=== PATIENT | male | born 1970 | race Caucasian/White ===

== ENCOUNTER 2018-02-15 09:14 | Emergency (ER) | payer BC ==
[2018-02-15 09:37] VITALS: BMI 21.1
--- NOTE | 2018-02-15 09:42 | PDOC ---
History of Present Illness - General Chief Complaint: Chest Pain Stated Complaint: CHEST PAIN Time Seen by Provider: 02/15/18 09:17 History Source: Patient Exam Limitations: No Limitations - History of Present Illness Initial Comments: 47 y/o male presenting to [facility] ER via private auto complaining of left sided chest pain for the past three days. Pain is described as dull in nature and localized to left upper chest. No radiation to arms, neck, back, or abdomen. Made worse by moving left arm. No changes with exertion or deep inspiration. Worse at night when lying down to sleep. No history of similar. Has not trialed OTC medications. Endorses recent significant life stressors involving ex- and child custody issues. Pt works in [address]. No family history of NC. PCP: Unable to recall name. Has not been evaluated in several years. Social Hx: - EtoH: Social drinker, none in last 48 hrs - Tobacco: Pack a day smoker since age 13 - Daily marijuana user Medical Hx: - Congenital heart murmur Surgical Hx: - Pt denies past surgical history. Past History - Past Medical History Allergies/Adverse Reactions: Allergies Allergy/AdvReac Type Severity Reaction Status Date / Time No Known Allergies Allergy Unverified 02/15/18 09:36 Home Medications: Ambulatory Orders NK [No Known Home Medication] 02/15/18 COPD: No Other medical history: heart Murmur - Suicide/Smoking/Psychosocial Hx Smoking History: Current every day smoker Have you smoked in the past 12 months: Yes Number of Cigarettes Smoked Daily: 20 Information on smoking cessation initiated: No Hx Alcohol Use: No Drug/Substance Use Hx: Yes (daily marijuana) Substance Use Type: Marijuana Review of Systems - Review of Systems Able to Perform ROS?: Yes Comments:: In addition to that documented in the HPI above, the additional ROS was obtained : Constitutional: Denies fevers or chills Eyes: Denies vision changes ENMT: Denies sore throat CV: per HPI Resp: Denies SOB GI: Denies vomiting or diarrhea *Physical Exam - Vital Signs Last Vital Signs Temp Pulse Resp BP Pulse Ox 98.2 F 64 17 106/77 98 02/15/18 14:25 02/15/18 14:25 02/15/18 14:25 02/15/18 14:25 02/15/18 14:25 - Physical Exam Comments: Constitutional: Well-developed, well-nourished, thin male in no acute distress or obvious discomfort. Found semi-fowlers in hospital bed. Alert and oriented x4. Answered all questions appropriately and completely. Speech was non-labored , non-pressured. HEENT: Normocephalic. No obvious external signs of trauma. Hearing grossly normal. No nasal discharge. Neck is supple, trachea is midline. Cardiovascular: Regular rate and regular rhythm. Mid-systolic click loudest at lower left sternal border loudest with inspiration. Peripheral pulses: Radial pulses full. Respiratory: Breathing unlabored. Equal chest rise and fall. Clear to auscultation bilaterally. No stridor, no wheezing, no rhonchi. Gastrointestinal: abdomen is soft, non-tender, non-distended. No hepatosplenemegaly. No pulsatile masses. No overlying skin lesions or obvious signs of trauma. Neuro: Alert and oriented. Moving all four extremities spontaneously. Skin/MSK: Subjective increase in discomfort with direct palpation of upper lateral aspect of left chest and passive adduction of left arm. Skin is warm, dry, and intact. No bruising, rashes, or other lesions. : No R or L CVA tenderness. Psych: Affect: appropriate. Mood: normal. ED Treatment Course - LABORATORY CBC & Chemistry Diagram: 02/15/18 09:50 02/15/18 09:50 - ADDITIONAL ORDERS Additional order review: Laboratory Results 02/15/18 02/15/18 12:58 09:50 Sodium 138 Potassium 4.2 Chloride 105 Carbon Dioxide 27 Anion Gap 7 L BUN 15 Creatinine 0.9 Creat Clearance w eGFR > 60 Random Glucose 89 Calcium 8.8 Total Bilirubin 1.2 H AST 13 L ALT 21 Alkaline Phosphatase 72 Creatine Kinase 116 Troponin I < 0.02 < 0.02 Total Protein 7.0 Albumin 4.0 02/15/18 09:50 RBC 4.91 MCV 90.1 MCHC 33.1 RDW 13.1 MPV 8.1 Neutrophils % 68.0 Lymphocytes % 24.2 Monocytes % 6.1 Eosinophils % 1.3 Basophils % 0.4 - RADIOLOGY Radiology Studies Ordered: Category Date Time Status CHEST PA & LAT [RAD] Stat Radiology 02/15/18 09:43 Completed - Medications Given in the ED: ED Medications Discontinued Medications Generic Name Dose Route Start Last Admin Trade Name Freq PRN Reason Stop Dose Admin Aspirin 324 mg 11/12/18 09:44 02/15/18 10:04 Asa - PO 02/15/18 09:45 324 mg ONCE ONE Administration Ibuprofen 800 mg 02/15/18 09:45 02/15/18 10:04 Motrin - PO 02/15/18 09:46 800 mg ONCE ONE Administration Medical Decision Making - Medical Decision Making *Reviewed vital signs, nursing notes, and prior visit documentation (if available). 47 y/o male complaining of left sided chest pain. Made worse by direct palpation and manipulation of left extremity. No cardiac history but daily smoker. Afebrile. Vitals unremarkable for hypotension or tachycardia. Physical exam as described above. Suspect MSK pain. Low suspicion for ACS, PE, arrthymia , aortic dissection, pericardial effusion, or pneumonia. Will obtain CBC, CMP, Cardiac Profile, EKG, and CXR. Ordered ASA and Ibuprofen for symptom relief. CXR unremarkable for acute cardiopulmonary process. Low suspicion for pneumonia or other pulmonary process. CBC unremarkable for anemia or leukocytosis. CMP unremarkable for electrolyte derangement. LFTs not elevated. BUN and Cr at baseline. eGFR >60. Initial troponin not elevated. Low suspicion for ACS. Will repeat EKG and troponin at 3 hour adri. Three hour troponin not elevated. No EKG changes. Low suspicion for ACS. Discussed imaging and laboratory results with pt. Answered all questions. Provided return precautions. Pt expressed verbal understanding and agreement with plan to discharge home with outpatient follow up. Provided referral to resident clinic. *DC/Admit/Observation/Transfer Diagnosis at time of Disposition: Atypical chest pain - Discharge Dispostion Disposition: HOME Condition at time of disposition: Stable Decision to Admit order: No - Referrals - Patient Instructions Printed Discharge Instructions: DI for Atypical Chest Pain Additional Instructions: Your EKG, chest xray, and blood work were all normal today. Your symptoms are not likely to be from your heart. The pain is probably a muscle pain. You can take over the counter Tylenol or Advil as needed for pain. Take as directed on the package insert. Do not exceed the recommended dosage. Please follow up with a primary care physician within the next week. I have placed a referral for you to see the [facility] at [place]. You will need to call to make an appointment. The number is [phone]. The address is as follows: [address] [place] [address] [place] [address] Go to the nearest emergency department if your condition worsens or you feel like you need additional emergency evaluation. Print Language: TANZANIAN - Post Discharge Activity
[2018-02-15] MEDS ORDERED: ASPIRIN 81 MG CHEWABLE TABLETS PO ONE (09:44)
[2018-02-15] MEDS ORDERED: IBUPROFEN 400 MG TABLET (FP) PO ONE ×2 (09:45→10:01)
[2018-02-15] MEDS ORDERED: ASPIRIN 81 MG CHEWABLE TABLETS ONE (10:01)
[2018-02-15 10:08] LABS: BASO % 0.4 % (0-2.0); EOS % 1.3 % (0-4.5); HEMATOCRIT 44.3 % (35.4-49); HEMOGLOBIN 14.7 GM/dL (11.7-16.9); LYMPH % 24.2 % (8-40); MCH 29.8 pg (25.7-33.7); MCHC 33.1 g/dl (32.0-35.9); MEAN CELL VOLUME 90.1 fl (80-96); MEAN PLT VOLUME 8.1 fl (7.5-11.1); MONO % 6.1 % (3.8-10.2); PLATELET COUNT 257 K/MM3 (134-434); RBC 4.91 M/mm3 (4.00-5.60); RDW 13.1 % (11.9-15.9); WHITE BLOOD COUNT 9.7 K/mm3 (4.0-10.0)
--- NOTE | 2018-02-15 10:27 | PDOC ---
Attending Attestation - Resident Resident Name: BishopElliott - ED Attending Attestation I have performed the following: I have examined & evaluated the patient, The case was reviewed & discussed with the resident, I agree w/resident's findings & plan, Exceptions are as noted - HPI HPI: 02/15/18 10:24 47 yo male smoker here today c/o chest pain. patient states started today. describes left chest wall pain, worrse with movement and pushing on his chest. describes as pressure not pain. no associated radiation no sob no n/v no leg swelling not plueritic. states did have a stress test and an echo 7 yrs ago when undergoing evaluation for a murmur. no abd pain. no cough no f/c no leg swelling. no fam h/o heart disease. 02/15/18 10:26 - Physicial Exam PE: 02/15/18 10:26 awake alert lungs clear left chest wall with reproducable pain on palpation. heart no appreciated murmur, rrr . abd soft nt nd. ext wwp no edema . no calf tenderenss. 2 + dp/ pt . skin warm and dry . alert oriented x 3 speech clear facies symmmetric. - Medical Decision Making 02/15/18 13:56 differential: msk starin, acs, pna, costochondritis, no risk factors for pe. plan ekg trop cxr asa, labs. pt labs initially normal. ekg unremarkable. will repeat trop at 4 hours pt low heart score, tashaley dc home with followup and referral for cardiology. Heart Score/ECG Review #1 General ECG Interpretation: Sinus Rhythm, Normal Rate, Normal Intervals, No acute ischemic changes Compared to previous ECG there are: Previous ECG unavail - [place]: Normal
[2018-02-15 10:40] LABS: ALK PHOS 72 U/L (45-117); ANION GAP 7 MMOL/L (8-16); BILIRUBIN,TOTAL 1.2 mg/dL (0.2-1); BLOOD UREA NITROGEN 15 mg/dL (7-18); CALCIUM 8.8 mg/dL (8.5-10.1); CHLORIDE 105 mmol/L (98-107); CO2 27 mmol/L (21-32); CREATININE 0.9 mg/dL (0.55-1.3); GLUCOSE,RANDOM 89 mg/dL (74-106); POTASSIUM 4.2 mmol/L (3.5-5.1); SGOT/AST 13 U/L (15-37); SGPT/ALT 21 U/L (13-61); SODIUM 138 mmol/L (136-145)
--- NOTE | 2018-02-15 10:41 | EKG ---
Test Reason : Blood Pressure : / mmHG Vent. Rate : 065 BPM Atrial Rate : 065 BPM P-R Int : 158 ms QRS Dur : 090 ms QT Int : 388 ms P-R-T Axes : 048 063 051 degrees QTc Int : 403 ms NORMAL SINUS RHYTHM WITH SINUS ARRHYTHMIA NORMAL ECG NO PREVIOUS ECGS AVAILABLE Confirmed by ATINA VEGAS MD ([id number]) on 02/15/2018 10:41:09 AM Referred By: Confirmed By:TAINA VEGAS MD
[2018-02-15 14:31] VITALS: BP 106/77; PULSE 64; TEMP 98.2
--- NOTE | 2018-02-16 16:34 | EKG ---
Test Reason : Blood Pressure : / mmHG Vent. Rate : 064 BPM Atrial Rate : 064 BPM P-R Int : 152 ms QRS Dur : 094 ms QT Int : 384 ms P-R-T Axes : 055 058 047 degrees QTc Int : 396 ms NORMAL SINUS RHYTHM NORMAL ECG WHEN COMPARED WITH ECG OF 15-FEB-2018 09:27, NO SIGNIFICANT CHANGE WAS FOUND Confirmed by MD Simpson Edward ([id number]) on 02/16/2018 4:33:30 PM Referred By: Confirmed By:Gama Simpson MD
== END 2018-02-15 14:31 | disposition home or self-care (01) ==
LOC: JER 09:14
DX: R07.89 Other chest pain (principal); F17.210 Nicotine dependence, cigarettes, uncomplicated
CPT/HCPCS: 36415; 71046-TC-FY; 80053; 82550; 84484; 85025; 93005; 93010; 99285-25